=== PATIENT | male | born 1955 | race Two or more races ===

== ENCOUNTER 2021-12-16 07:45 | Outpatient (CLI) | payer OTHER | END 2021-12-16 07:55 | disposition home or self-care (01) | LOC: RX STUDY 07:45 | PROVIDERS: ATTEND Internal Medicine Gastroenterology | DX: K56.600 Partial intestinal obstruction, unspecified as to cause (principal); K56.609 Unspecified intestinal obstruction, unspecified as to partial versus complete obstruction; C18.9 Malignant neoplasm of colon, unspecified; K57.92 Diverticulitis of intestine, part unspecified, without perforation or abscess without bleeding ==